=== PATIENT | female | born 1960 | race Asian ===

== ENCOUNTER 2018-04-08 16:32 | Emergency (ER) | payer OTHER ==
--- NOTE | 2018-04-08 16:37 | PN ---
Progress Note (short form) - Note Progress Note: Cardiology brief note. Received call from Dr. Walsh that pt is on her way to ER. Had a markedly abnormal outpatient nuclear stress test today at [facility] suggestive of multivessel CAD. Plan is for transfer to [facility] either tonight to telemetry or directly to the cardiac senior laboratory technician tomorrow am. The transfer service is already aware of the patient but will need to be called again by ER staff when pt arrives.
[2018-04-08] MEDS ORDERED: ASPIRIN 325 MG TABLET PO ONE (16:42)
[2018-04-08 16:44] VITALS: BMI 25.7
--- NOTE | 2018-04-08 16:44 | PDOC ---
History of Present Illness - General Chief Complaint: Chest Pain Stated Complaint: CHEST PAIN Time Seen by Provider: 04/08/18 16:35 History Source: Patient Exam Limitations: No Limitations - History of Present Illness Initial Comments: 04/08/18 17:57 The patient is a 57 year old female with a past medical history of HTN and HLD here today for evaluation of acute on chronic dyspnea with mild exertion and chest pain. The patient reports that her SOB and chest pain has been going on for over a year and has been getting worse in the past 3 months. Dyspnea occurs with taking several steps. Of note she had outpatient myocardial stress test today which showed multivessel CAD: mild inferolateral ischemia, moderate anterior ischemia, transient ischemic dilation, normal LVEF. sent in today for more urgent cath/cards evaluation Patient denies headache, lightheadedness. Denies fever, chills. Denies chest pain, shortness of breath. Denies nausea, vomiting, diarrhea, abdominal pain. Denies lower extremity edema. Denies urinary symptoms. Denies neurologic symptoms. Denies travel or suspicious food intake. Allergies: NKA PCP: Italo Walsh Past History - Past Medical History Allergies/Adverse Reactions: Allergies Allergy/AdvReac Type Severity Reaction Status Date / Time No Known Allergies Allergy Verified 04/07/18 09:04 Review of Systems - Review of Systems Able to Perform ROS?: Yes Comments:: 04/08/18 17:58 Constitutional: no fevers or chills. HEENT: no headache or dizziness. No congestion. No visual/hearing disturbances. CVS: +CP. no syncope. Resp: +SOB Abdomen: no abdominal pain, nausea or vomiting. Genitourinary: no urinary sx, hematuria. MUSCULOSKELETAL: No joint pain and swelling. No neck or back pain. SKIN: no redness or skin changes, no discharge, no rash. No wounds. Hematologic: no easy bruising/bleeding. NEUROLOGIC: No headache, dizziness, LOC or altered mental status. No weakness, numbness or tingling. All other systems reviewed and negative, or as documented in HPI. *Physical Exam - Vital Signs Last Vital Signs Temp Pulse Resp BP Pulse Ox 98.2 F 60 14 118/78 100 04/08/18 16:40 04/08/18 18:27 04/08/18 18:27 04/08/18 18:27 04/08/18 18:27 - Physical Exam Comments: 04/08/18 17:59 General: NAD, awake and alert HEENT: NCAT, PERRL, EOMI, clear conjunctiva, anicteric, moist mucus membranes, clear oropharynx, no oral lesions.. Neck: neck supple, FROM. no JVD. Resp: CTAB, normal and even respirations, no respiratory distress CVS: regular rate, +loud holosystolic murmur. 2+ peripheral pulses throughout, no peripheral edema Abdomen: soft, NTND, no peritoneal signs. Back: nontender, normal inspection and ROM MSK: no edema, HEMPHILL x4, ROM intact. No clubbing or cyanosis. normal bulk and tone. Extremities: no calf tenderness Neuro: alert, oriented appropriately; no focal neurologic deficits Skin: warm and well perfused, cap refill <2 sec, normal color 04/08/18 17:59 Heart Score/ECG Review - ECG Impressions Normal ECG: No Non-specific ST Elevation: Yes Ischemic Changes: Yes Comment:: 04/08/18 18:04 EKG normal sinus rhythm, no interval abnormalities, narrow QRS, significant ST depressions in I, II, AVL, V5-6 (lateral distribution) - ST elevations noted in AVR/V1, could indicate high grade coronary vessel disease correlating with her abnormal stress test. no prior EKGs. Moderate Sedation - Procedure Monitoring Vital Signs: Procedure Monitoring Vital Signs Temperature 98.2 F 04/08/18 16:40 Pulse Rate 60 04/08/18 18:27 Respiratory Rate 14 04/08/18 18:27 Blood Pressure 118/78 04/08/18 18:27 O2 Sat by Pulse Oximetry (%) 100 04/08/18 18:27 ED Treatment Course - LABORATORY CBC & Chemistry Diagram: 04/08/18 17:05 04/08/18 17:05 - ADDITIONAL ORDERS Additional order review: Laboratory Results 04/08/18 04/08/18 17:05 17:05 PT with INR 12.70 INR 1.08 PTT (Actin FS) 30.1 Sodium 140 Potassium 3.6 Chloride 104 Carbon Dioxide 26 Anion Gap 11 BUN 16 Creatinine 0.9 Creat Clearance w eGFR > 60 Random Glucose 112 H Calcium 8.9 Magnesium 2.2 Total Bilirubin 0.6 AST 24 ALT 28 Alkaline Phosphatase 75 Troponin I 0.02 Total Protein 7.6 Albumin 4.5 04/08/18 17:05 RBC 4.33 MCV 75.4 L MCHC 33.7 RDW 16.5 H MPV 9.1 Neutrophils % 69.7 Lymphocytes % 19.6 Monocytes % 7.7 Eosinophils % 2.2 Basophils % 0.8 - RADIOLOGY Radiology Studies Ordered: Category Date Time Status CHEST PA & LAT [RAD] Stat Radiology 04/08/18 16:42 Ordered CHEST X-RAY PORTABLE* [RAD] Stat Radiology 04/08/18 19:10 Ordered - Medications Given in the ED: ED Medications Discontinued Medications Generic Name Dose Route Start Last Admin Trade Name Freq PRN Reason Stop Dose Admin Aspirin 325 mg 04/08/18 16:42 04/08/18 17:05 Asa - PO 04/08/18 16:43 325 mg ONCE ONE Administration Nitroglycerin 0.4 mg 04/08/18 17:49 04/08/18 17:54 Nitrostat - SL 04/08/18 17:50 0.4 mg ONCE ONE Administration Medical Decision Making - Critical Care Time Total Critical Care Time (minutes): 30 Critical Care Statement: The care of this patient involved high complexity decision making to prevent further life threatening deterioration of the patient 's condition and/or to evaluate & treat vital organ system(s) failure or risk of failure. - Medical Decision Making 04/08/18 18:00 I, Valeri Sanchez MD, attest that this document has been prepared under my direction and personally reviewed by me in its entirety. I further attest, that it accurately reflects all work, treatment, procedures and medical decision -making performed by me. See HPI for details Vital signs reviewed, wnl. chest pain 10/04, intermittent. Prior notes reviewed, including admissions, discharges and consultations. laboratory results and imaging reviewed, basic labs and lytes wnl, notable for negative troponin. EKG normal sinus rhythm, no interval abnormalities, narrow QRS, significant ST depressions in I, II, AVL, V5-6 (lateral distribution) - ST elevations noted in AVR/V1, could indicate high grade coronary vessel disease correlating with her abnormal stress test. no prior EKGs. ED course: nitro x1 for chest pain, IV heparin gtt initiated given coronary ischemia, ASA 325 mg x1. cards cs with Dr Brown, transfer to [facility] for telemetry/cardiac cath. Dispo: Transfer to [facility] for catheterization, telemetry and admission under Dr Brown.. Discussed results and management plan with pt and family member at bedside, agree with impression and plan 04/08/18 18:04 04/08/18 19:28 *DC/Admit/Observation/Transfer Diagnosis at time of Disposition: Chest pain, Diffuse ST segment depression, Myocardial ischemia - Discharge Dispostion Disposition: TRANSFER ACUTE CARE/OTHER HOSP - Referrals Referrals: Italo Walsh MD [Primary Care Provider] - - Patient Instructions - Post Discharge Activity - Transfer to Acute Care Facility Receiving Facility: [facility] Accepting Physician:: Dr Brown, Cardiology
[2018-04-08] MEDS ORDERED: HEPARIN NA (PORCINE) 5,000 UNITS/ML 1ML VIAL IVPUSH PRN ×2 (16:49)
[2018-04-08] MEDS ORDERED: HEPARIN - 25,000 UNIT in SODIUM CHLORIDE 495 ML IV SCH (17:00)
[2018-04-08] MEDS ORDERED: HEPARIN NA (PORCINE) 5,000 UNITS/ML 1ML VIAL ONE (17:18)
[2018-04-08] MEDS ORDERED: ASPIRIN 325 MG TABLET ONE (17:18)
[2018-04-08] MEDS ORDERED: HEPARIN INFUSION - 25,000 UNITS/500 ML INFUS.BAG IVPB ONE (17:18)
[2018-04-08] MEDS ORDERED: NITROGLYCERIN SUBLINGUAL 1/150 0.4 MG TAB SL ONE (17:49)
[2018-04-08] MEDS ORDERED: NITROGLYCERIN SUBLINGUAL 1/150 0.4 MG TAB ONE (17:53)
[2018-04-08 18:28] LABS: BASO % 0.8 % (0-2.0); EOS % 2.2 % (0-4.5); HEMATOCRIT 32.7 % (32.4-45.2); LYMPH % 19.6 % (8-40); MCH 25.4 pg (25.7-33.7); MCHC 33.7 g/dl (32.0-36.0); MEAN CELL VOLUME 75.4 fl (80-96); MEAN PLT VOLUME 9.1 fl (7.5-11.1); MONO % 7.7 % (3.8-10.2); NEUT % 69.7 % (42.8-82.8); PLATELET COUNT 243 K/MM3 (134-434); RBC 4.33 M/mm3 (3.60-5.2); RDW 16.5 % (11.6-15.6); WHITE BLOOD COUNT 4.8 K/mm3 (4.0-10.0)
[2018-04-08 18:43] LABS: INR 1.08 (0.83-1.09); PROTHROMBIN TIME (PATIENT) 12.7 SEC (9.7-13.0)
[2018-04-08 18:46] LABS: ACTIVATED PTT 30.1 SECONDS (25.2-36.5)
[2018-04-08 19:12] LABS: ALBUMIN 4.5 g/dl (3.4-5.0); ALK PHOS 75 U/L (45-117); ANION GAP 11 MMOL/L (8-16); BILIRUBIN,TOTAL 0.6 mg/dL (0.2-1); BLOOD UREA NITROGEN 16 mg/dL (7-18); CALCIUM 8.9 mg/dL (8.5-10.1); CHLORIDE 104 mmol/L (98-107); CO2 26 mmol/L (21-32); CREATININE 0.9 mg/dL (0.55-1.3); GLUCOSE,RANDOM 112 mg/dL (74-106); MAGNESIUM 2.2 mg/dL (1.8-2.4); POTASSIUM 3.6 mmol/L (3.5-5.1); SGOT/AST 24 U/L (15-37); SGPT/ALT 28 U/L (13-61); SODIUM 140 mmol/L (136-145); TOT PROT 7.6 g/dl (6.4-8.2)
[2018-04-08 19:47] VITALS: BP 124/88; PULSE 62; TEMP 98.3
--- NOTE | 2018-04-09 10:21 | EKG ---
Test Reason : Blood Pressure : / mmHG Vent. Rate : 071 BPM Atrial Rate : 071 BPM P-R Int : 168 ms QRS Dur : 102 ms QT Int : 440 ms P-R-T Axes : 051 009 171 degrees QTc Int : 478 ms NORMAL SINUS RHYTHM POSSIBLE LEFT ATRIAL ENLARGEMENT LEFT VENTRICULAR HYPERTROPHY WITH REPOLARIZATION ABNORMALITY ANTERIOR INFARCT , AGE UNDETERMINED ABNORMAL ECG NO PREVIOUS ECGS AVAILABLE Confirmed by MILLER HERRERA MD ([id number]) on 04/09/2018 10:21:15 AM Referred By: Confirmed By:MILLER HERRERA MD
== END 2018-04-08 23:30 | disposition short-term general hospital (02) ==
LOC: JER 16:32
PROC: 3E033GC Introduction of Other Therapeutic Substance into Peripheral Vein, Percutaneous Approach (ICD-10-PCS; principal; 2018-04-08)
DX: I25.9 Chronic ischemic heart disease, unspecified (principal); R94.31 Abnormal electrocardiogram [ECG] [EKG]; R07.9 Chest pain, unspecified
CPT/HCPCS: 36415; 71045-TC-FY; 80053; 83735; 84484; 85025; 85610; 85730; 86850; 86900; 86901; 93005; 93010; 96365; 96375; 99284-25; J1644

== ENCOUNTER 2023-04-15 18:53 | Observation (INO) | payer OTHER ==
[2023-04-15] MEDS ORDERED: ASPIRIN 81 MG CHEWABLE TABLETS PO ONE ×2 (20:02→20:33)
[2023-04-15 20:04] LABS: BASO % 0.8 % (0-2.0); EOS % 2.7 % (0-4.5); HEMATOCRIT 38.9 % (32.4-45.2); HEMOGLOBIN 13.1 GM/dL (10.7-15.3); LYMPH % 21.8 % (8-40); MCH 28.7 pg (25.7-33.7); MCHC 33.7 g/dl (32.0-36.0); MEAN CELL VOLUME 85.1 fl (80-96); MEAN PLT VOLUME 9.3 fl (7.5-11.1); MONO % 7.5 % (3.8-10.2); NEUT % 67.2 % (42.8-82.8); PLATELET COUNT 248 10^3/uL (134-434); RBC 4.57 M/mm3 (3.60-5.2); RDW 14.9 % (11.6-15.6); WHITE BLOOD COUNT 6.2 K/mm3 (4.0-10.0)
[2023-04-15 20:15] LABS: BLOOD UREA NITROGEN 16.5 mg/dL (7-18); CALCIUM 9.4 mg/dL (8.5-10.1); INR 1.17 (0.83-1.09); PROTHROMBIN TIME (PATIENT) 13.5 SEC (9.7-13.0)
[2023-04-15 20:16] LABS: ALBUMIN 3.8 g/dl (3.4-5.0)
[2023-04-15] MEDS ORDERED: ASPIRIN 81 MG CHEWABLE TABLETS ONE ×2 (20:17→20:48)
[2023-04-15 20:18] LABS: ACTIVATED PTT 30.9 SECONDS (25.2-36.5)
[2023-04-15 20:19] LABS: CREATININE 1.2 mg/dL (0.55-1.3)
[2023-04-15 20:20] LABS: BILIRUBIN,TOTAL 0.5 mg/dL (0.2-1); TOT PROT 7.1 g/dl (6.4-8.2)
[2023-04-16 06:45] LABS: BASO % 0.7 % (0-2.0); HEMATOCRIT 34.3 % (32.4-45.2); HEMOGLOBIN 11.7 GM/dL (10.7-15.3); LYMPH % 31.3 % (8-40); MCH 29.3 pg (25.7-33.7); MCHC 34.2 g/dl (32.0-36.0); MEAN CELL VOLUME 85.6 fl (80-96); MEAN PLT VOLUME 9.3 fl (7.5-11.1); MONO % 13.6 % (3.8-10.2); NEUT % 50.4 % (42.8-82.8); PLATELET COUNT 179 10^3/uL (134-434); RBC 4.01 M/mm3 (3.60-5.2); RDW 15.4 % (11.6-15.6); WHITE BLOOD COUNT 4.1 K/mm3 (4.0-10.0)
[2023-04-16 06:59] LABS: POTASSIUM 3.6 mmol/L (3.5-5.1)
[2023-04-16 07:00] LABS: CALCIUM 8.9 mg/dL (8.5-10.1)
[2023-04-16 07:01] LABS: BLOOD UREA NITROGEN 26.7 mg/dL (7-18); MAGNESIUM 2.1 mg/dL (1.8-2.4)
[2023-04-16 07:04] LABS: CREATININE 0.9 mg/dL (0.55-1.3)
[2023-04-16] MEDS ORDERED: AMOX TR/POT CLAV 875MG/125MG TABLETS (FP) ONE ×2 (07:52→17:57)
[2023-04-16] MEDS: AMOX TR/POT CLAV 875MG/125MG TABLETS (FP) PO SCH ×2 (08:01→18:12)
[2023-04-16] MEDS: ASPIRIN 81 MG CHEWABLE TABLETS PO SCH (09:21)
[2023-04-16] MEDS: VERAPAMIL HCL 240 MG E.R. TABLET PO SCH (09:21)
[2023-04-16] MEDS ORDERED: ATORVASTATIN CA 20 MG TABLET (FP) PO SCH (22:00)
[2023-04-16] MEDS ORDERED: ATORVASTATIN CA 20 MG TABLET (FP) ONE (22:15)
[2023-04-17 04:40] VITALS: BMI 29.0
[2023-04-17] MEDS: AMOX TR/POT CLAV 875MG/125MG TABLETS (FP) PO SCH (08:55)
[2023-04-17] MEDS: ASPIRIN 81 MG CHEWABLE TABLETS PO SCH (10:01)
[2023-04-17] MEDS: VERAPAMIL HCL 240 MG E.R. TABLET PO SCH (10:02)
[2023-04-17] MEDS ORDERED: POTASSIUM CHLORIDE ORAL LIQUID 20 MEQ/15 ML PO ONE (11:04)
[2023-04-17 12:41] VITALS: BP 152/101; PULSE 57; RESP 18; TEMP 97.8
== END 2023-04-17 14:36 | disposition home or self-care (01) ==
LOC: JER 18:53 → JERBED 22:05 → J4W 04-17 04:02
PROVIDERS: ADMIT Internal Medicine; ATTEND Family Medicine
DX: I24.9 Acute ischemic heart disease, unspecified (principal); I42.1 Obstructive hypertrophic cardiomyopathy; J98.11 Atelectasis; I34.0 Nonrheumatic mitral (valve) insufficiency; R01.1 Cardiac murmur, unspecified; E78.5 Hyperlipidemia, unspecified; I10 Essential (primary) hypertension; Z87.891 Personal history of nicotine dependence
CPT/HCPCS: 0241U-QW; 36415; 71045-TC-FY; 80048; 80053; 80061; 83735; 84443; 84484; 85025; 85610; 85730; 93005; 93010; 93306-TC; 99285-25; G0378